=== PATIENT | female | born 1985 | race Caucasian/White ===

== ENCOUNTER 2025-06-22 08:14 | Outpatient (CLI) | payer BC, SELFPAY ==
--- NOTE | ~2025-06-22 | XR_ITS ---
[id number] Indication: Cervical radiculopathy Comparison: None Findings: The vertebral heights are intact. No fracture or subluxation. The disc heights are intact. Soft tissues unremarkable Impression: No acute abnormality. Reviewed, dictated and finalized at location [employer] Impression: No acute abnormality.
== END 2025-06-22 08:15 | disposition home or self-care (01) ==
LOC: MICIMG 08:17
PROVIDERS: PCP Physician Assistant; Visit Provider Physician Assistant
DX: M54.12 Radiculopathy, cervical region (principal)
CPT/HCPCS: 72040